=== PATIENT | male | born 1995 | race African-American/Black ===

== ENCOUNTER 2025-03-22 21:18 | Emergency (ER) | payer OTHER, MEDICAID ==
[~2025-03-22] VITALS: Ht 170.2 cm; Wt 59.1 kg
[~2025-03-22 21:18] MED LIST: METH-358 PO
[2025-03-22 21:26] VITALS: TEMP 98.4
[2025-03-22] MEDS ORDERED: ALBU18HF12 IH (21:32)
[2025-03-22 22:57] LABS: BASOPHILS % (AUTO) 0.7 % (0.0-2.0); EOSINOPHILS % (AUTO) 2.7 % (1.0-6.0); HEMATOCRIT 37.9 % (41-53); HEMOGLOBIN 13.2 g/dL (13.5-17.5); LYMPHOCYTES # (AUTO) 1.1 K/uL (1.0-4.8); LYMPHOCYTES % (AUTO) 25.5 % (22.0-44.0); MEAN CORPUSCULAR HEMOGLOBIN 31.4 pg (26.0-34.0); MEAN CORPUSCULAR HGB CONC 34.8 G/dL (31.0-37.0); MEAN CORPUSCULAR VOLUME 90 fL (80-100); MONOCYTES # (AUTO) 0.4 K/uL (0.1-1.0); MONOCYTES % (AUTO) 8.8 % (2.0-9.0); NEUTROPHILS # (AUTO) 2.7 K/uL (1.8-7.7); NEUTROPHILS % (AUTO) 62.3 % (40.0-70.0); PLATELET COUNT (AUTO) 224 K/uL (150-450); RED BLOOD CELL COUNT(AUTO) 4.19 MIL/uL (4.50-5.90); RED CELL DISTRIBUTION WIDTH 12.9 % (11.5-14.5); WHITE BLOOD COUNT (AUTO) 4.3 K/uL (4.5-11.0)
[2025-03-22 23:06] LABS: ANION GAP 12 mmol/L (8-16); CALCIUM, TOTAL 9.7 mg/dL (8.8-10.5); CARBON DIOXIDE 26 mmol/L (22-29); CHLORIDE 101 mmol/L (98-107); CREATININE 1.37 mg/dL (0.60-1.30); GLOMERULAR FILTR. RATE CALC > 60 mL/min (>60); GLUCOSE,RANDOM 114 mg/dL (70-110); SODIUM SERUM 139 mmol/L (136-145); UREA NITROGEN, BLOOD 7 mg/dL (7-18)
[2025-03-22] MEDS: MethylPREDNISolone SOD SUCC 125 MG/2 ML VIAL IVP ONE (23:27)
[2025-03-22] MEDS: POTASSIUM CHLORIDE 20 MEQ ER TABLET PO ONE (23:28)
[2025-03-23] MEDS: IPRATROPIUM BROMIDE 0.5 MG/2.5 ML NEB SOLUTION NEB ONE (00:23)
[2025-03-23] MEDS: ALBUTEROL SULFATE 2.5 MG/0.5 ML NEB SOLUTION NEB ONE (00:23)
[2025-03-23] MEDS: LORazepam 2 MG/ML VIAL IVP ONE (00:53)
[2025-03-23 01:02] VITALS: BP 125/88; PULSE 111; RESP 18; O2SAT 100
[2025-03-23 01:07] LABS: AMPHET/METH SCREEN,URINE NEGATIVE (NEGATIVE); BARBITURATE SCREEN, URINE NEGATIVE (NEGATIVE); BENZODIAZEPINES SCREEN,URINE NEGATIVE (NEGATIVE); CANNABINOID SCREEN,URINE NEGATIVE (NEGATIVE); COCAINE SCREEN,URINE NEGATIVE (NEGATIVE); METHADONE SCREEN, URINE NEGATIVE (NEGATIVE); OPIATE SCREEN,URINE NEGATIVE (NEGATIVE); PHENCYCLIDINE SCREEN,URINE NEGATIVE (NEGATIVE)
[2025-03-23 01:08] LABS: ALCOHOL, URINE DRUG SCREEN NEGATIVE (NEGATIVE)
[2025-03-23] MEDS ORDERED: HYDR-4808 PO (01:34)
[2025-03-23] MEDS ORDERED: PARO-38 PO (01:34)
== END 2025-03-23 01:54 | disposition home or self-care (01) ==
LOC: EMS 21:18
DX: F41.9 Anxiety disorder, unspecified (principal); R07.89 Other chest pain; E87.6 Hypokalemia; F41.0 Panic disorder [episodic paroxysmal anxiety]; F17.210 Nicotine dependence, cigarettes, uncomplicated; J45.909 Unspecified asthma, uncomplicated; F90.9 Attention-deficit hyperactivity disorder, unspecified type; Z79.899 Other long term (current) drug therapy
CPT/HCPCS: 99284; 96374; 71045; 80048; 85025; 36415; 80307; 96375; 94640; J2919; J2060; J7613

== ENCOUNTER 2025-04-23 00:36 | Emergency (ER) | payer OTHER, MEDICAID ==
[~2025-04-23] VITALS: Ht 170.2 cm; Wt 70.5 kg
[~2025-04-23 00:36] MED LIST changes: +ALBU18HF12 IH; +HYDR-4808 PO; -METH-358 PO; +PARO-38 PO
[2025-04-23 02:05] VITALS: TEMP 98.105288
[2025-04-23 02:38] LABS: APPEARANCE,URINE CLEAR (CLEAR); GLUCOSE, URINE (UA) NEGATIVE (NEGATIVE); LEUKOCYTE ESTERASE ,URINE NEGATIVE (NEGATIVE); NITRATE,URINE NEGATIVE (NEGATIVE); OCCULT BLOOD,URINE NEGATIVE (NEGATIVE); PH,URINE DRUG SCREEN 6.0 (5.0-8.0); SPECIFIC GRAVITIY, URINE 1.002 (1.003-1.030)
[2025-04-23 02:44] LABS: AMPHET/METH SCREEN,URINE NEGATIVE (NEGATIVE); BARBITURATE SCREEN, URINE NEGATIVE (NEGATIVE); CANNABINOID SCREEN,URINE NEGATIVE (NEGATIVE); COCAINE SCREEN,URINE NEGATIVE (NEGATIVE); METHADONE SCREEN, URINE NEGATIVE (NEGATIVE)
[2025-04-23 02:45] LABS: ALCOHOL, URINE DRUG SCREEN NEGATIVE (NEGATIVE)
[2025-04-23] MEDS: MAG HYDROX/ALUMINUM HYD/SIMETH ES 30 ML SUSPENSION UDCUP PO ONE (03:14)
[2025-04-23] MEDS: ACETAMINOPHEN 500 MG TABLET PO ONE (05:14)
[2025-04-23] MEDS: KETOROLAC TROMETHAMINE 30 MG/ML VIAL IM ONE (05:14)
[2025-04-23] MEDS ORDERED: FAMO20 PO (05:43)
[2025-04-23 05:55] VITALS: BP 128/76; PULSE 62; RESP 15; O2SAT 99
== END 2025-04-23 06:00 | disposition home or self-care (01) ==
LOC: EMS 00:40
DX: K21.9 Gastro-esophageal reflux disease without esophagitis (principal); J45.909 Unspecified asthma, uncomplicated; F41.9 Anxiety disorder, unspecified; F17.210 Nicotine dependence, cigarettes, uncomplicated; Z87.19 Personal history of other diseases of the digestive system; Z79.899 Other long term (current) drug therapy
CPT/HCPCS: 99285; 93005; 96372; 80307; 81003; J1885

== ENCOUNTER 2025-05-05 16:43 | Emergency (ER) | payer OTHER, MEDICAID ==
[~2025-05-05] VITALS: Ht 170.2 cm; Wt 59.1 kg
[~2025-05-05 16:43] MED LIST changes: +FAMO20 PO
[2025-05-05 17:29] LABS: PLATELET COUNT (AUTO) 194 K/uL (150-450); RED BLOOD CELL COUNT(AUTO) 4.16 MIL/uL (4.50-5.90); RED CELL DISTRIBUTION WIDTH 12.3 % (11.5-14.5); WHITE BLOOD COUNT (AUTO) 4.0 K/uL (4.5-11.0)
[2025-05-05 17:38] LABS: CALCIUM, TOTAL 9.1 mg/dL (8.8-10.5); CREATININE 1.05 mg/dL (0.60-1.30); GLOMERULAR FILTR. RATE CALC > 60 mL/min (>60); GLUCOSE,RANDOM 90 mg/dL (70-110); SODIUM SERUM 140 mmol/L (136-145); UREA NITROGEN, BLOOD 4 mg/dL (7-18)
[2025-05-05 17:44] LABS: ASPARTATE AMINOTRANSFERASE 18.0 U/L (15-37); TOTAL PROTEIN, SERUM 6.5 g/dL (6.4-8.2)
[2025-05-05 18:16] LABS: TROPONIN I-HIGH SENSITIVITY 4 ng/L (<76)
[2025-05-05] MEDS: ACETAMINOPHEN 500 MG TABLET PO ONE (19:22)
[2025-05-05 19:51] LABS: TROPONIN I-HIGH SENSITIVITY 4 ng/L (<76)
[2025-05-05] MEDS: PB/HYOSCY/ATR/SCOP/LIDO/MAALOX 55 ML BOTTLE PO ONE (20:37)
[2025-05-05 20:42] VITALS: BP 131/79; PULSE 66; RESP 20; TEMP 98.3; O2SAT 100
== END 2025-05-05 20:51 | disposition home or self-care (01) ==
LOC: EMS 16:43
DX: K21.9 Gastro-esophageal reflux disease without esophagitis (principal); F41.0 Panic disorder [episodic paroxysmal anxiety]; J45.909 Unspecified asthma, uncomplicated; F17.210 Nicotine dependence, cigarettes, uncomplicated; Z79.899 Other long term (current) drug therapy
CPT/HCPCS: 71045; 80048; 80076; 83690; 84484; 85025; 93005; 99285; 36415-L1; 36415-TC

== ENCOUNTER 2025-05-28 03:00 | Emergency (ER) | payer MEDICAID, OTHER ==
[~2025-05-28] VITALS: Ht 170.2 cm; Wt 61.4 kg
[2025-05-28 03:11] VITALS: TEMP 98.4
[2025-05-28] MEDS ORDERED: MECL-302 PO (03:27)
[2025-05-28] MEDS ORDERED: DOXY50 PO (03:27)
[2025-05-28] MEDS ORDERED: DOXY-354 PO (03:31)
[2025-05-28] MEDS: PB/HYOSCY/ATR/SCOP/LIDO/MAALOX 55 ML BOTTLE PO ONE (04:16)
[2025-05-28 04:42] LABS: PH,URINE DRUG SCREEN 6.5 (5.0-8.0)
[2025-05-28 04:48] LABS: ALCOHOL, URINE DRUG SCREEN NEGATIVE (NEGATIVE); AMPHET/METH SCREEN,URINE NEGATIVE (NEGATIVE); BARBITURATE SCREEN, URINE NEGATIVE (NEGATIVE); CANNABINOID SCREEN,URINE NEGATIVE (NEGATIVE); COCAINE SCREEN,URINE NEGATIVE (NEGATIVE); METHADONE SCREEN, URINE NEGATIVE (NEGATIVE)
[2025-05-28 04:49] VITALS: BP 116/80; PULSE 60; RESP 17; O2SAT 99
[2025-05-28] MEDS ORDERED: PANT-31 PO (05:32)
== END 2025-05-28 06:39 | disposition home or self-care (01) ==
LOC: EMS 03:01
DX: K21.9 Gastro-esophageal reflux disease without esophagitis (principal); R12 Heartburn; F41.9 Anxiety disorder, unspecified; J45.909 Unspecified asthma, uncomplicated; F17.210 Nicotine dependence, cigarettes, uncomplicated; Z79.899 Other long term (current) drug therapy; Z87.19 Personal history of other diseases of the digestive system
CPT/HCPCS: 80307; 99284

== ENCOUNTER 2025-05-30 03:59 | Emergency (ER) | payer OTHER, MEDICAID ==
[~2025-05-30] VITALS: Ht 170.2 cm; Wt 61.8 kg
[~2025-05-30 03:59] MED LIST changes: +DOXY-354 PO; +MECL-302 PO; +PANT-31 PO
[2025-05-30 04:02] VITALS: BP 142/86; PULSE 62; RESP 16; TEMP 97.4; O2SAT 100
[2025-05-30] MEDS: MECLIZINE HCL 25 MG TABLET PO ONE (04:20)
[2025-05-30 04:23] LABS: PLATELET COUNT (AUTO) 193 K/uL (150-450); RED BLOOD CELL COUNT(AUTO) 3.90 MIL/uL (4.50-5.90); RED CELL DISTRIBUTION WIDTH 12.3 % (11.5-14.5); WHITE BLOOD COUNT (AUTO) 5.2 K/uL (4.5-11.0)
[2025-05-30 04:32] LABS: CALCIUM, TOTAL 8.9 mg/dL (8.8-10.5); CREATININE 1.01 mg/dL (0.60-1.30); GLOMERULAR FILTR. RATE CALC > 60 mL/min (>60); GLUCOSE,RANDOM 100 mg/dL (70-110); SODIUM SERUM 131 mmol/L (136-145); UREA NITROGEN, BLOOD 4 mg/dL (7-18)
[2025-05-30] MEDS: POTASSIUM CHLORIDE 20 MEQ ER TABLET PO ONE (04:47)
[2025-05-30] MEDS: KETOROLAC TROMETHAMINE 30 MG/ML VIAL IVP ONE (04:47)
== END 2025-05-30 05:36 | disposition still patient (30) ==
LOC: EMS 04:01
DX: F41.9 Anxiety disorder, unspecified (principal); R51.9 Headache, unspecified; J45.909 Unspecified asthma, uncomplicated; F17.210 Nicotine dependence, cigarettes, uncomplicated; Z87.19 Personal history of other diseases of the digestive system; Z79.899 Other long term (current) drug therapy
CPT/HCPCS: 99284; 96374; 80048; 85025; 36415; 93005; J1885